=== PATIENT | female | born 1955 | race Caucasian/White ===

== ENCOUNTER 2016-12-27 09:44 | Emergency (ER) | payer SELFPAY ==
--- NOTE | ~2016-12-27 | CR7 ---
[facility]. [facility] A Service of [facility] & [facility] RADIOLOGY TEXT RESULTS PATIENT: ALFREDITO ROJAS LOCATION: SED : 51 UNIT #: [id number] AGE: [address]: Julio César Lopez MD SEX: F ORDER DR: [id number] [place] [id number] MR#: [id number] Acc #: [id number] NAME: ALFREDITO ROJAS : 1955 SEX: F STUDY DATE/TIME: 12/27/2016 10:25 UNIT: SED ROOM: STUDY DESCRIPTION: CR Abdomen Single AP View Attending Physician: Julio César Lopez M.D. Ordering Physician: Julio César Lopez M.D. Primary Care Physician: Ann Stafford M.D. MEDICAL IMAGING REPORT This report is preliminary unless electronic signature is present. EXAM Flat and upright abdomen, two views. 12/27/2016 COMPARISON None. HISTORY Abdominal pain for two weeks. FINDINGS Normal bowel gas pattern. Several calcifications in the right mid abdomen are likely renal stones. However, there is no free air or evidence of bowel obstruction. There is osteopenia but no acute bony abnormality. Dictated by... Jose Rodríguez M.D. THIS IS AN ELECTRONICALLY VERIFIED REPORT Jose Rodríguez M.D. at 12/28/2016 9:52 AM DONITA/jytoi TD: 12/27/2016 14:04 JOB #: [id number] MEDICAL IMAGING REPORT
[~2016-12-27 09:44] MED LIST: ASPERDRINK81 MG; ASPIRIN PO; AUGMENTIN PO; CIPRO; CIPRO PO; DITROPAN PO; FLEXERIL10 M1 PO; LIPITOR20 MG; LOPRESSOR; LOPRESSOR PO; LORTAB 7.5-5001 TAB PO; LOSARTAN-HCTZ1 EACH; METOPROLOL TAR25 MG; PREDNISONE PO; PROZAC; PROZAC40 MG; PROZAC40 MG PO; ROBAXIN500 MG PO; VOLTAREN75 MG PO
[2016-12-27 09:57] LABS: URINE SOURCE CLEAN CATCH
[2016-12-27 10:00] LABS: MICRO INDICATED? YES; URINE APPEARANCE HAZY; URINE BILIRUBIN NEG (NEG); URINE BLOOD 2+ (NEG); URINE COLOR YELLOW; URINE GLUCOSE NEG (NORM); URINE KETONE NEG (NEG); URINE LEUKOCYTE ESTERASE 2+ (NEG); URINE NITRATE POS (NEG); URINE PROTEIN 1+ (NEG); URINE SPECIFIC GRAVITY 1.015 (1.003-1.035); URINE UROBILINOGEN 0.2 MG/DL (NORM)
[2016-12-27 10:06] LABS: CULTURE INDICATED? YES; URINE BACTERIA 2+ (NEG); URINE MUCUS PRESENT; URINE RBC 25-50 /[HPF] (0-2); URINE SQUAMOUS EPITHELIAL CELL OCCAS /[HPF]; URINE WBC INNUM /[HPF] (0-5)
[2016-12-27] MEDS ORDERED: KEFLEX PO (11:09)
== END 2016-12-27 11:37 | disposition home or self-care (01) ==
LOC: SED 09:44
PROVIDERS: Emergency Medicine
DX: N30.00 Acute cystitis without hematuria (principal); I10 Essential (primary) hypertension; Z79.899 Other long term (current) drug therapy
CPT/HCPCS: 74000; 81003; 87086; 87088; 87186; 96372; 99284; J0696